=== PATIENT | male | born 1960 | race Caucasian/White ===

== ENCOUNTER → 2021-11-06 | Outpatient (CLI) | payer OTHER ==
[~2021-11-06] MED LIST: ALBU90OI INH; DOXY100 PO; METPRE4DP PO
== END | disposition home or self-care (01) ==
LOC: LAB 11:57 → LAB SHORT 11:57
DX: S91.301A Unspecified open wound, right foot, initial encounter (principal)
CPT/HCPCS: 87070; 87075; 87205

== ENCOUNTER 2022-01-09 01:00 | Day surgery (SDC) | payer OTHER | END 2022-01-09 23:49 | disposition home or self-care (01) | LOC: WOUND 01:00 | DX: S91.301D Unspecified open wound, right foot, subsequent encounter (principal); X58.XXXD Exposure to other specified factors, subsequent encounter; L08.89 Other specified local infections of the skin and subcutaneous tissue; R60.0 Localized edema; Z87.891 Personal history of nicotine dependence | CPT/HCPCS: A9270; G0463 ==

== ENCOUNTER 2022-01-23 04:15 | Day surgery (SDC) | payer OTHER | END 2022-01-23 23:20 | disposition home or self-care (01) | LOC: WOUND 04:15 | DX: S91.104D Unspecified open wound of right lesser toe(s) without damage to nail, subsequent encounter (principal); R60.0 Localized edema ==

== ENCOUNTER 2022-02-06 01:51 | Day surgery (SDC) | payer OTHER | END 2022-02-06 23:27 | disposition home or self-care (01) | LOC: WOUND 01:51 | DX: S91.301D Unspecified open wound, right foot, subsequent encounter (principal); X58.XXXD Exposure to other specified factors, subsequent encounter; R60.0 Localized edema | CPT/HCPCS: A9270; G0463 ==

== ENCOUNTER → 2024-01-13 | Outpatient (CLI) | payer OTHER | LOC: LAB SHORT 11:12 → LAB 11:12 | DX: L03.116 Cellulitis of left lower limb (principal) | CPT/HCPCS: 87070; 87205 ==

== ENCOUNTER 2024-12-03 11:07 | Inpatient (IN) | payer OTHER ==
[~2024-12-03] VITALS: Wt 114.2 kg
--- NOTE | 2024-12-03 12:16 | NUR ---
ARRIVAL PT ARRIVED TO UNIT AMBULATING ON HIS OWN. BROUGHT HIS BIKE WITH HIM. REPORTS PAIN BUT TOLERABLE AT THIS TIME. STATES IT HAS BEEN ONGOING FOR A WEEK. DR. MORATAYA NOTIFIED OF PATIENTS ARRIVAL. PT CURRENTLY CHANGING INTO A GOWN. CALL LIGHT PROVIDED AND EDUCATED ON USE.
[2024-12-03 12:28] VITALS: BP 131/72
[2024-12-03] MEDS ORDERED: CeFAZolin Sodium 2,000 MG in NS 100 ML IV SCH (13:00)
[2024-12-03] MEDS ORDERED: Ondansetron HCl 2 MG / ML 2ML Vial IV PRN (14:15)
[2024-12-03] MEDS ORDERED: NS 1,000 ML IV SCH (14:15)
[2024-12-03 14:46] VITALS: BP 142/79
[2024-12-03 17:53] LABS: BASOPHILS ABSOLUTE AUTO 0.03 K/mm3 (0.00-0.23); BASOPHILS PERCENT AUTO 0 % (0-2); EOSINOPHILS ABSOLUTE AUTO 0.26 K/mm3 (0.00-0.68); EOSINOPHILS PERCENT AUTO 3 % (0-6); Hematocrit 38.0 % (37.0-53.0); Hemoglobin 12.7 g/dL (13.5-17.5); IMMATURE GRAN ABSOLUTE AUTO 0.06 K/mm3 (0.00-0.10); IMMATURE GRAN PERCENT AUTO 1 % (0-1); LYMPHOCYTES ABSOLUTE AUTO 1.01 K/mm3 (0.84-5.20); LYMPHOCYTES PERCENT AUTO 10 % (21-46); MONOCYTES ABSOLUTE AUTO 1.47 K/mm3 (0.16-1.47); MONOCYTES PERCENT AUTO 15 % (4-13); Mean Corpuscular HGB Conc 33.4 g/dL (31.5-36.5); Mean Corpuscular Volume 98 fL (80-100); NEUTROPHILS ABSOLUTE AUTO 6.91 K/mm3 (1.96-9.15); NEUTROPHILS PERCENT AUTO 71 % (41-73); NRBC ABSOLUTE 0.00 K/mm3 (0.00-0.02); NRBC Auto 0.0 /100 WBC (0.0-0.2); Platelet Count 372 K/mm3 (150-400); RDW Coefficient Variation 13.8 % (11.7-14.2); RDW Standard Deviation 49.5 fL (35.1-46.3)
--- NOTE | 2024-12-03 18:00 | NUR ---
DIRECT ADMIT AND SUMMARY PATIENT ADMITTED FOR CELLULITIS. BILATERAL LEGS WITH WOUNDS AND REDNESS. PICTURES DONE AND WOUNDS RE WRAPPED. EMILIA ANXIOUS ABOUT ADMISSION. DR MORATAYA AWARE. DISCUSSED WITH PATIENT PLAN. PATIENT RELUCTANT TO HAVE LABS DRAWN AND IV PLACED. REVIEWED WITH PATIENT HIS CURRENT SITUATION AND ATTEMPS TO TREAT WITH ORAL ANTIBIOTICS. PROVIDED EDUCATION TO PATIENT RELATED TO POSSIBLE OUTCOMES IF REFUSES IV AND LABS RELATED TO CURRENT CONDITION. PATIENT STATES HE DOES WANT TO GET BETTER. POWERGLIDE PLACED FOR LAB DRAWS AND ANTIBIOTICS. LABS OBTAINED AND SENT TO LAB. IV FLUIDS STARTED AND ANTIBIOTICS AFTER POWERGLIDE PLACED. PATIENT CONTINUES TO BE ANXIOUS AND PARANOID AT TIMES.
[2024-12-03 18:14] LABS: C-REACTIVE PROTEIN, EXT RANGE 1.16 mg/dL (0.000-0.300)
[2024-12-03 18:22] LABS: Alanine Aminotransfer (ALT/SGP 16.0 U/L (12-78); Albumin, Blood 2.6 g/dL (3.4-5.0); Albumin/Globulin Ratio 0.6 (0.8-1.8); Anion Gap 6.0 mmol/L (3-11); Aspartate Aminotrans (AST/SGOT 13.0 U/L (12-37); Bilirubin, Total 0.4 mg/dL (0.1-1.0); Blood Urea Nitrogen 11.0 mg/dL (8-24); CO2, Blood 28.0 mmol/L (21-32); Calcium, Blood 8.8 mg/dL (8.5-10.1); Chloride, Blood 106.0 mmol/L (98-108); Creatinine, Blood 0.79 mg/dL (0.60-1.20); Globulin, Blood 4.5 g/dL (2.2-4.0); Glucose, Blood 104.0 mg/dL (70-99); Potassium, Blood 3.7 mmol/L (3.5-5.5); Sodium, Blood 136.0 mmol/L (136-145); Total Protein, Blood 7.1 g/dL (6.4-8.2)
[2024-12-03 19:11] VITALS: BP 132/55
--- NOTE | 2024-12-03 20:59 | NUR ---
PHYSICIAN COMMUNICATION INFORMED BY PRIMARY NURSE PT STATES HE NORMALLY TAKES AN INHALER. INFORMED BROCK P & HE ORDERED A BD PROTOCAL FOR RT TO COME & ASSESS PT.
[2024-12-03] MEDS ORDERED: Albuterol 2.5 MG/3 ML VIAL INH PRN (21:50)
--- NOTE | 2024-12-03 23:08 | NUR ---
UPDATE RN REQUEST EVAL BY RT R/T PT'S NOTED WHEEZING. PT DENIES SOB OR CHEST PAIN. PER RT, PT SPOT CHECK SPO2 WHILE SLEEP WAS 56% ON RA. PROTOCOL INITIATED AND HOSPITALIST NOTIFIED. PT REFUSED CPAP AND WAS RELUCTANT TO NC. PT NOW ABOVE 95% ON 4L NC WHILE SLEEPING WITH RESP EVEN/UNLABORED. HAS CALL LIGHT IN REACH.
[2024-12-03 23:35] VITALS: BP 137/64
--- NOTE | 2024-12-04 03:13 | NUR ---
SHIFT SUMMARY PT A/OX4. SPO2 ABOVE 95% ON 4L NC, DENIES SOB. PRN BREATHING TX, WHEN PT ALLOWS, FOR WHEEZING. CONT BIOX IN PLACE. HR NSR AT 77 BPM PER TELE. PT CONT TO DENY SOB, CP OR N/T. DRESSING TO BLE CDI. PT REFUSING TO ELEVATE BLE R/T COMFORT. REDNESS, WHEEPING AND PITTING EDEMA NOTED. IS DIONY PO INTAKE, DENIES N/V, IVF INFUSING PER ORDER. REPORTS PAIN TO BLE AT TOLERABLE LEVEL. AMB IND TO BATHROOM WITH IV ASSISTANCE. PLAN TO CONT IV ABX AND IVF. PT CURRENTLY IN BED, EYES CLOSED WITH RESP EVEN/UNLABORED. HAS CALL LIGHT IN REACH. WILL GIVE REPORT TO ONCOMING RN.
[2024-12-04 03:16] VITALS: BP 111/54
--- NOTE | 2024-12-04 04:35 | NUR ---
UPDATE PT SAT'S DROPPED TO 60-70% ON 4L NC WHILE SLEEPING. HOB ELEVATED AND PT ABLE TO TAKE DEEP BREATHS, SPO2 RETURNED TO 95-98% ON 4L, THEN DROPPED AGAIN ONCE ASLEEP. RT IN TO EVALUATE. PT CONT TO REFUSE CPAP, AGREED TO MASK. SATS CURRENTLY HOLDING AT 98% WHILE SLEEPING, CONT BIOX AND TELE IN PLACE. DR. ESPINOZA NOTIFIED, NO NEW ORDERS. PT CURRENTLY RESTING WITH CALL LIGHT IN REACH.
[2024-12-04 05:01] LABS: BASOPHILS ABSOLUTE AUTO 0.03 K/mm3 (0.00-0.23); BASOPHILS PERCENT AUTO 0 % (0-2); EOSINOPHILS ABSOLUTE AUTO 0.17 K/mm3 (0.00-0.68); EOSINOPHILS PERCENT AUTO 2 % (0-6); Hematocrit 38.8 % (37.0-53.0); Hemoglobin 12.6 g/dL (13.5-17.5); IMMATURE GRAN ABSOLUTE AUTO 0.03 K/mm3 (0.00-0.10); IMMATURE GRAN PERCENT AUTO 0 % (0-1); LYMPHOCYTES ABSOLUTE AUTO 1.17 K/mm3 (0.84-5.20); LYMPHOCYTES PERCENT AUTO 14 % (21-46); MONOCYTES ABSOLUTE AUTO 1.33 K/mm3 (0.16-1.47); MONOCYTES PERCENT AUTO 16 % (4-13); Mean Corpuscular HGB Conc 32.5 g/dL (31.5-36.5); Mean Corpuscular Volume 100 fL (80-100); NEUTROPHILS ABSOLUTE AUTO 5.79 K/mm3 (1.96-9.15); NEUTROPHILS PERCENT AUTO 68 % (41-73); NRBC ABSOLUTE 0.00 K/mm3 (0.00-0.02); NRBC Auto 0.0 /100 WBC (0.0-0.2); Platelet Count 336 K/mm3 (150-400); RDW Coefficient Variation 13.9 % (11.7-14.2); RDW Standard Deviation 51.4 fL (35.1-46.3)
[2024-12-04 05:54] LABS: Anion Gap 5.0 mmol/L (3-11); Blood Urea Nitrogen 12.0 mg/dL (8-24); CO2, Blood 29.0 mmol/L (21-32); Calcium, Blood 7.9 mg/dL (8.5-10.1); Chloride, Blood 108.0 mmol/L (98-108); Creatinine, Blood 0.76 mg/dL (0.60-1.20); Glucose, Blood 91.0 mg/dL (70-99); Potassium, Blood 3.9 mmol/L (3.5-5.5); Sodium, Blood 138.0 mmol/L (136-145)
[2024-12-04 07:16] VITALS: BP 114/53
[2024-12-04] MEDS ORDERED: Enoxaparin 40 MG/0.4 ML SYR SC SCH (09:00)
[2024-12-04 14:38] VITALS: BP 122/60
[2024-12-04 19:18] VITALS: BP 113/62
[2024-12-04 23:13] VITALS: BP 115/69
[2024-12-05 02:32] VITALS: BP 118/64
--- NOTE | 2024-12-05 05:13 | NUR ---
NOC SUMMARY- PT CONTINUES TO HAVE CONTINUED SOB WITH EXERTION. PT LEGS ARE WEEPING . DRESSINGS CHANGED. PT USES A OXYMASK WHILE SLEEPING TO MAINTAIN O2 >90% @ 4 LPM. NO OTHER ISSUES. PT VOIDING AND TOLERATING PO. CALL LIGHT IN REACH.
[2024-12-05 06:08] LABS: BASOPHILS ABSOLUTE AUTO 0.03 K/mm3 (0.00-0.23); BASOPHILS PERCENT AUTO 0 % (0-2); EOSINOPHILS ABSOLUTE AUTO 0.26 K/mm3 (0.00-0.68); EOSINOPHILS PERCENT AUTO 3 % (0-6); Hematocrit 38.9 % (37.0-53.0); Hemoglobin 12.7 g/dL (13.5-17.5); IMMATURE GRAN ABSOLUTE AUTO 0.04 K/mm3 (0.00-0.10); IMMATURE GRAN PERCENT AUTO 1 % (0-1); LYMPHOCYTES ABSOLUTE AUTO 1.20 K/mm3 (0.84-5.20); LYMPHOCYTES PERCENT AUTO 16 % (21-46); MONOCYTES ABSOLUTE AUTO 1.05 K/mm3 (0.16-1.47); MONOCYTES PERCENT AUTO 14 % (4-13); Mean Corpuscular HGB Conc 32.6 g/dL (31.5-36.5); Mean Corpuscular Volume 100 fL (80-100); NEUTROPHILS ABSOLUTE AUTO 5.09 K/mm3 (1.96-9.15); NEUTROPHILS PERCENT AUTO 66 % (41-73); NRBC ABSOLUTE 0.00 K/mm3 (0.00-0.02); NRBC Auto 0.0 /100 WBC (0.0-0.2); Platelet Count 343 K/mm3 (150-400); RDW Coefficient Variation 13.8 % (11.7-14.2); RDW Standard Deviation 51.0 fL (35.1-46.3)
[2024-12-05 07:11] VITALS: BP 129/68
[2024-12-05 11:54] VITALS: BP 129/80
[2024-12-05 15:09] VITALS: BP 135/70
--- NOTE | 2024-12-05 17:04 | NUR ---
SUMMARY NO ACUTE CHANGES T/O SHIFT. PT REC'D LASIX PER ORDERS THIS AM. HAS BEEN STANDING AT BEDSIDE TO VOID IN URINAL INDEPENDENTLY. AMBULATED TO RESTROOM INDEPENDENTLY AND HAD BM. USES CALL LIGHT APPROPRIATELY.
[2024-12-05 20:09] VITALS: BP 125/61
[2024-12-05 23:03] LABS: Alanine Aminotransfer (ALT/SGP 12.0 U/L (12-78); Albumin, Blood 2.4 g/dL (3.4-5.0); Albumin/Globulin Ratio 0.5 (0.8-1.8); Anion Gap 5.0 mmol/L (3-11); Aspartate Aminotrans (AST/SGOT 14.0 U/L (12-37); Bilirubin, Total 0.3 mg/dL (0.1-1.0); Blood Urea Nitrogen 10.0 mg/dL (8-24); CO2, Blood 29.0 mmol/L (21-32); Calcium, Blood 8.4 mg/dL (8.5-10.1); Chloride, Blood 106.0 mmol/L (98-108); Creatinine, Blood 0.78 mg/dL (0.60-1.20); Globulin, Blood 4.6 g/dL (2.2-4.0); Glucose, Blood 86.0 mg/dL (70-99); Potassium, Blood 4.4 mmol/L (3.5-5.5); Sodium, Blood 136.0 mmol/L (136-145); Total Protein, Blood 7.0 g/dL (6.4-8.2)
[2024-12-05 23:39] VITALS: BP 141/68
--- NOTE | 2024-12-06 04:42 | NUR ---
SHIFT SUMMARY AOX3, SLOW TO RESPOND. UNABLE TO FULLY COMPREHEND SEVERITY OF LOW SPO2 WHILE ASLEEP. CAN FOLLOW SIMPLE DIRECTIONS & ANSWER YES/NO QUESTIONS APPROP. APPROX 0100 PT STARTED DESATING TO 62% ON 3L, INCREASED O2 TO 5L & PT HAS BEEN MAINTAINING SATS SINCE, UNLESS PT REMOVES OXIMASK THEN HE DESATS TO 58-70% WHILE ASLEEP. ENCOURAGED PT TO KEEP O2 IN PLACE & TRIED TO EDUCATE THE IMPORTANCE, PT STILL REFUSED TO WEAR CPAP. REST OF VSS. TELE NSR W/BBB HR 71. +2 EDEMA TO L FOOT. CELLULITIS TO BLE, REDNESS DECREASED, DRESSINGS IN PLACE, C/D/I. DENIES N/T. IND W/TRANSFER. STABLE ON FEET. DENIES PAIN. CALL LIGHT IN REACH.
[2024-12-06 05:20] VITALS: BP 133/60
[2024-12-06 05:54] LABS: BASOPHILS ABSOLUTE AUTO 0.04 K/mm3 (0.00-0.23); BASOPHILS PERCENT AUTO 1 % (0-2); EOSINOPHILS ABSOLUTE AUTO 0.35 K/mm3 (0.00-0.68); EOSINOPHILS PERCENT AUTO 4 % (0-6); Hematocrit 40.4 % (37.0-53.0); Hemoglobin 13.2 g/dL (13.5-17.5); IMMATURE GRAN ABSOLUTE AUTO 0.05 K/mm3 (0.00-0.10); IMMATURE GRAN PERCENT AUTO 1 % (0-1); LYMPHOCYTES ABSOLUTE AUTO 1.09 K/mm3 (0.84-5.20); LYMPHOCYTES PERCENT AUTO 13 % (21-46); MONOCYTES ABSOLUTE AUTO 1.21 K/mm3 (0.16-1.47); MONOCYTES PERCENT AUTO 15 % (4-13); Mean Corpuscular HGB Conc 32.7 g/dL (31.5-36.5); Mean Corpuscular Volume 98 fL (80-100); NEUTROPHILS ABSOLUTE AUTO 5.55 K/mm3 (1.96-9.15); NEUTROPHILS PERCENT AUTO 67 % (41-73); NRBC ABSOLUTE 0.00 K/mm3 (0.00-0.02); NRBC Auto 0.0 /100 WBC (0.0-0.2); Platelet Count 368 K/mm3 (150-400); RDW Coefficient Variation 13.4 % (11.7-14.2); RDW Standard Deviation 48.3 fL (35.1-46.3)
[2024-12-06 06:25] LABS: Alanine Aminotransfer (ALT/SGP 10.0 U/L (12-78); Albumin, Blood 2.4 g/dL (3.4-5.0); Albumin/Globulin Ratio 0.5 (0.8-1.8); Anion Gap 6.0 mmol/L (3-11); Aspartate Aminotrans (AST/SGOT 15.0 U/L (12-37); Bilirubin, Total 0.3 mg/dL (0.1-1.0); Blood Urea Nitrogen 11.0 mg/dL (8-24); CO2, Blood 29.0 mmol/L (21-32); Calcium, Blood 8.0 mg/dL (8.5-10.1); Chloride, Blood 106.0 mmol/L (98-108); Creatinine, Blood 0.77 mg/dL (0.60-1.20); Globulin, Blood 5.1 g/dL (2.2-4.0); Glucose, Blood 87.0 mg/dL (70-99); Potassium, Blood 3.9 mmol/L (3.5-5.5); Sodium, Blood 137.0 mmol/L (136-145); Total Protein, Blood 7.5 g/dL (6.4-8.2)
[2024-12-06 07:12] VITALS: BP 142/72
--- NOTE | 2024-12-06 10:20 | NUR ---
DRESSING DRESSING TO BLE'S REMOVED WITH DR SANDHU. LEG CELLULITIS WOUNDS CLEANSED WITH WOUND SPRAY, SCRUBBED WITH 4X4. DRIED. XEROFORM PLACED OVER WOUNDS, ABD PADS PLACED OVER TOP, THEN WRAPPED WITH KERLEX. PT OFFERED SHOWER BEFORE CLEANSING/REDRESSING, PT DENIED, STATES "MAYBE TOMORROW".
[2024-12-06 15:31] VITALS: BP 116/67
--- NOTE | 2024-12-06 17:04 | NUR ---
SUMMARY NO ACUTE CHANGES THIS SHIFT. VSS. AXO3-4 , POOR COMPREHENSION REGARDING MEDICINE MOTED. DIURESING WELL. DRESSINGS CHANGED TO BILAT LEGS THIS AM. PLAN FOR DC TOMORROW PER DR SANDHU. PT RESTING OFF AND ON TODAY. AMBULATES WELL W/O ASSIST. WATCHING TV OR NAPPING FOR MAJORITY OF SHIFT.
[2024-12-06 20:10] VITALS: BP 125/63
[2024-12-06 23:58] VITALS: BP 142/62
[2024-12-07 05:03] VITALS: BP 120/65
[2024-12-07 06:41] LABS: BASOPHILS ABSOLUTE AUTO 0.05 K/mm3 (0.00-0.23); BASOPHILS PERCENT AUTO 1 % (0-2); EOSINOPHILS ABSOLUTE AUTO 0.27 K/mm3 (0.00-0.68); EOSINOPHILS PERCENT AUTO 4 % (0-6); Hematocrit 41.6 % (37.0-53.0); Hemoglobin 13.6 g/dL (13.5-17.5); IMMATURE GRAN ABSOLUTE AUTO 0.05 K/mm3 (0.00-0.10); IMMATURE GRAN PERCENT AUTO 1 % (0-1); LYMPHOCYTES ABSOLUTE AUTO 1.19 K/mm3 (0.84-5.20); LYMPHOCYTES PERCENT AUTO 15 % (21-46); MONOCYTES ABSOLUTE AUTO 1.06 K/mm3 (0.16-1.47); MONOCYTES PERCENT AUTO 14 % (4-13); Mean Corpuscular HGB Conc 32.7 g/dL (31.5-36.5); Mean Corpuscular Volume 101 fL (80-100); NEUTROPHILS ABSOLUTE AUTO 5.13 K/mm3 (1.96-9.15); NEUTROPHILS PERCENT AUTO 66 % (41-73); NRBC ABSOLUTE 0.00 K/mm3 (0.00-0.02); NRBC Auto 0.0 /100 WBC (0.0-0.2); Platelet Count 362 K/mm3 (150-400); RDW Coefficient Variation 13.4 % (11.7-14.2); RDW Standard Deviation 49.8 fL (35.1-46.3)
[2024-12-07 07:02] LABS: Alanine Aminotransfer (ALT/SGP 12.0 U/L (12-78); Albumin, Blood 2.5 g/dL (3.4-5.0); Albumin/Globulin Ratio 0.5 (0.8-1.8); Anion Gap 5.0 mmol/L (3-11); Aspartate Aminotrans (AST/SGOT 14.0 U/L (12-37); Bilirubin, Total 0.2 mg/dL (0.1-1.0); Blood Urea Nitrogen 14.0 mg/dL (8-24); CO2, Blood 30.0 mmol/L (21-32); Calcium, Blood 8.7 mg/dL (8.5-10.1); Chloride, Blood 105.0 mmol/L (98-108); Creatinine, Blood 0.75 mg/dL (0.60-1.20); Globulin, Blood 5.1 g/dL (2.2-4.0); Glucose, Blood 98.0 mg/dL (70-99); Potassium, Blood 4.1 mmol/L (3.5-5.5); Sodium, Blood 136.0 mmol/L (136-145); Total Protein, Blood 7.6 g/dL (6.4-8.2)
[2024-12-07 07:03] VITALS: BP 118/55
--- NOTE | 2024-12-07 07:33 | NUR ---
SUMMARY NO ACUTE CHANGES. CONT TO NEED O2 AND SLEEP APNEA NOTED.
--- NOTE | 2024-12-07 12:56 | NUR ---
TELE DC'D. MIDLINE IV DC'D INTACT. PT GETTING DRESSED FOR DISCHARGE.
[2024-12-07] MEDS ORDERED: CLIN150 PO (13:27)
--- NOTE | 2024-12-07 13:37 | NUR ---
DC INSTRUCT REVIEWED WITH PT. STATED UNDERSTANDING. DISCHARGED INTO SELF CARE.
--- NOTE | 2024-12-07 14:03 | NUR ---
NEW RX FOR CLINDAMYCIN CALLED TO [id number]
== END 2024-12-07 13:35 | disposition home or self-care (01) | DRG 603 ==
LOC: SURS 11:07
PROVIDERS: Student in an Organized Health Care Education/Training Program; ADMIT Family Medicine
DX: L03.115 Cellulitis of right lower limb (principal); I48.91 Unspecified atrial fibrillation; J44.89 Other specified chronic obstructive pulmonary disease; L03.116 Cellulitis of left lower limb; F41.9 Anxiety disorder, unspecified; I87.2 Venous insufficiency (chronic) (peripheral); G47.33 Obstructive sleep apnea (adult) (pediatric); Z53.20 Procedure and treatment not carried out because of patient's decision for unspecified reasons; Z90.49 Acquired absence of other specified parts of digestive tract
CPT/HCPCS: 36415; 73700; 80048; 80053; 83036; 83605; 85025; 85651; 86140; 94640; 94664; 94762; A9270; C1751; J0690; J1938; J2003; J7030

== ENCOUNTER 2024-12-25 09:07 | Emergency (ER) | payer OTHER ==
[~2024-12-25] VITALS: Ht 180.3 cm; Wt 108.9 kg
[~2024-12-25 09:07] MED LIST changes: +CLIN150 PO
[2024-12-25] MEDS ORDERED: FUROSEMIDE20 MG PO (09:27)
[2024-12-25] MEDS ORDERED: SULFAMETHOXAZO1 EAC1 PO (09:27)
[2024-12-25] MEDS ORDERED: KLOR-CON 1010 ME9 PO (09:27)
[2024-12-25 10:20] VITALS: BP 133/74
[2024-12-25] MEDS ORDERED: XARELTO15 MG PO (10:26)
== END 2024-12-25 10:39 | disposition home or self-care (01) ==
LOC: ER 09:07
DX: I82.402 Acute embolism and thrombosis of unspecified deep veins of left lower extremity (principal); J44.9 Chronic obstructive pulmonary disease, unspecified; I48.91 Unspecified atrial fibrillation; J45.909 Unspecified asthma, uncomplicated; F17.200 Nicotine dependence, unspecified, uncomplicated; Z79.899 Other long term (current) drug therapy
CPT/HCPCS: 99283-25; A9270

== ENCOUNTER 2025-02-15 14:12 | Observation (INO) | payer OTHER ==
[~2025-02-15] VITALS: Ht 180.3 cm; Wt 108.9 kg
[~2025-02-15 14:12] MED LIST changes: +FUROSEMIDE20 MG PO; +KLOR-CON 1010 ME9 PO; +SULFAMETHOXAZO1 EAC1 PO; +XARELTO15 MG PO
[2025-02-15] MEDS ORDERED: Clindamycin 600mg in D5W 50 ML IV ONE (14:30)
[2025-02-15 14:44] LABS: BASOPHILS ABSOLUTE AUTO 0.04 K/mm3 (0.00-0.23); BASOPHILS PERCENT AUTO 0 % (0-2); EOSINOPHILS ABSOLUTE AUTO 0.31 K/mm3 (0.00-0.68); EOSINOPHILS PERCENT AUTO 3 % (0-6); Hematocrit 38.9 % (37.0-53.0); Hemoglobin 13.0 g/dL (13.5-17.5); IMMATURE GRAN ABSOLUTE AUTO 0.04 K/mm3 (0.00-0.10); IMMATURE GRAN PERCENT AUTO 0 % (0-1); LYMPHOCYTES ABSOLUTE AUTO 1.22 K/mm3 (0.84-5.20); LYMPHOCYTES PERCENT AUTO 13 % (21-46); MONOCYTES ABSOLUTE AUTO 1.26 K/mm3 (0.16-1.47); MONOCYTES PERCENT AUTO 13 % (4-13); Mean Corpuscular HGB Conc 33.4 g/dL (31.5-36.5); Mean Corpuscular Volume 98 fL (80-100); NEUTROPHILS ABSOLUTE AUTO 6.71 K/mm3 (1.96-9.15); NEUTROPHILS PERCENT AUTO 70 % (41-73); NRBC ABSOLUTE 0.00 K/mm3 (0.00-0.02); NRBC Auto 0.0 /100 WBC (0.0-0.2); Platelet Count 333 K/mm3 (150-400); RDW Coefficient Variation 13.9 % (11.7-14.2); RDW Standard Deviation 50.9 fL (35.1-46.3)
[2025-02-15 15:01] LABS: C-REACTIVE PROTEIN, EXT RANGE 0.41 mg/dL (0.000-0.300)
[2025-02-15 15:06] LABS: Anion Gap 7.0 mmol/L (3-11); Blood Urea Nitrogen 9.0 mg/dL (8-24); CO2, Blood 26.0 mmol/L (21-32); Calcium, Blood 8.4 mg/dL (8.5-10.1); Chloride, Blood 109.0 mmol/L (98-108); Creatinine, Blood 0.77 mg/dL (0.60-1.20); Glucose, Blood 102.0 mg/dL (70-99); Potassium, Blood 3.7 mmol/L (3.5-5.5); Sodium, Blood 138.0 mmol/L (136-145)
[2025-02-15] MEDS ORDERED: FLU VACC TS2025-26(6MOS UP)/PF 45 MCG/0.5 ML SYRINGE IM ONE (21:25)
[2025-02-15] MEDS ORDERED: Ondansetron HCl 2 MG / ML 2ML Vial IV PRN (21:25)
[2025-02-15] MEDS ORDERED: Ipratropium/Albuterol SulF 2.5-0.5MG/3 ML Amp INH SCH (21:25)
[2025-02-15] MEDS ORDERED: Albuterol 2.5 MG/3 ML VIAL INH PRN (21:25)
[2025-02-15] MEDS ORDERED: OxyCODONE 5 mg/Acetamin 325 mg TABLET PO PRN (21:25)
[2025-02-15] MEDS ORDERED: XARELTO20 MG PO (22:21)
[2025-02-15 22:52] VITALS: BP 132/72
[2025-02-15] MEDS ORDERED: Clindamycin 900mg in D5W 50ML 50 ML IV SCH (23:00)
[2025-02-15] MEDS ORDERED: NS 1,000 ML IV SCH (23:30)
[2025-02-16 05:09] VITALS: BP 121/64
--- NOTE | 2025-02-16 05:31 | NUR ---
SHIFT SUMMARY; PT TO ROOM FROM ED AT APPROX 2240. PT A/OX4, ONE ASSIST TO BATHROOM. PT CURRENTLY INFUSING CLINDAMYCN FOR DX OF CELLULITIS. LUNG SOUNDS ASCULTATED WITH INSPIRATORY WHEEZE IN ALL LUNG KLEIN. BILATERAL LOWER EXTREMITY REDNESS, SWELLING, AND LEAKAGE NOTED. LEFT MESSAGE W/ DR. TEIXEIRA'S OFFICE FOR CONSULTATION FOR POSSIBLE DEBRIDEMENT. PT NPO AFTER MIDNIGHT FOR POSSIBLE PROCEDURE. PT ON TELE WITH NSR AT 69 BPM. 325 ML OF DARK YELLOW URINE VOIDED DURING SHIFT. VSS. CALL LIGHT IN REACH W/ BED IN LOW POSITION.
[2025-02-16 06:24] LABS: BASOPHILS ABSOLUTE AUTO 0.04 K/mm3 (0.00-0.23); BASOPHILS PERCENT AUTO 1 % (0-2); EOSINOPHILS ABSOLUTE AUTO 0.26 K/mm3 (0.00-0.68); EOSINOPHILS PERCENT AUTO 3 % (0-6); Hematocrit 40.6 % (37.0-53.0); Hemoglobin 13.2 g/dL (13.5-17.5); IMMATURE GRAN ABSOLUTE AUTO 0.02 K/mm3 (0.00-0.10); IMMATURE GRAN PERCENT AUTO 0 % (0-1); LYMPHOCYTES ABSOLUTE AUTO 1.18 K/mm3 (0.84-5.20); LYMPHOCYTES PERCENT AUTO 15 % (21-46); MONOCYTES ABSOLUTE AUTO 1.29 K/mm3 (0.16-1.47); MONOCYTES PERCENT AUTO 16 % (4-13); Mean Corpuscular HGB Conc 32.5 g/dL (31.5-36.5); Mean Corpuscular Volume 102 fL (80-100); NEUTROPHILS ABSOLUTE AUTO 5.13 K/mm3 (1.96-9.15); NEUTROPHILS PERCENT AUTO 65 % (41-73); NRBC ABSOLUTE 0.00 K/mm3 (0.00-0.02); NRBC Auto 0.0 /100 WBC (0.0-0.2); Platelet Count 318 K/mm3 (150-400); RDW Coefficient Variation 14.2 % (11.7-14.2); RDW Standard Deviation 53.4 fL (35.1-46.3)
[2025-02-16 06:44] LABS: Anion Gap 5.0 mmol/L (3-11); Blood Urea Nitrogen 10.0 mg/dL (8-24); CO2, Blood 27.0 mmol/L (21-32); Calcium, Blood 8.3 mg/dL (8.5-10.1); Chloride, Blood 109.0 mmol/L (98-108); Creatinine, Blood 0.75 mg/dL (0.60-1.20); Glucose, Blood 98.0 mg/dL (70-99); Potassium, Blood 4.2 mmol/L (3.5-5.5); Sodium, Blood 137.0 mmol/L (136-145)
[2025-02-16 07:25] VITALS: BP 112/65
[2025-02-16] MEDS ORDERED: Lactobacil 2-S.Thermo-Bifido 1 1 Cap PO SCH (09:00)
[2025-02-16] MEDS ORDERED: Enoxaparin 40 MG/0.4 ML SYR SC SCH (09:00)
[2025-02-16] MEDS ORDERED: CeFAZolin Sodium 1,000 MG in NS 50 ML IV SCH (13:00)
[2025-02-16 15:32] VITALS: BP 121/60
[2025-02-16] MEDS ORDERED: NS 250 ML IV PRN (15:50)
--- NOTE | 2025-02-16 18:15 | NUR ---
SHIFT SUMMARY PATIENT A&OX4, EXPRESSES ANNOYANCE AT NURSING STAFF WITH EYE ROLLS AND VERBAL STATEMENTS. DR. PHILIP CONSULTED PT, PATIENT IS TO HAVE WOUND CARE, CONSISTENT CLEANING OF WOUNDS AND PERSONAL HYGIENE WITH SHOWERS, PATIENT TO CONTINUE ANTIBIOTICS. CURRENTLY IN BED EATING DINNER. BED IS IN THE LOWEST POSITION, CALL LIGHT IS WITHIN REACH.
[2025-02-16] MEDS ORDERED: ALBU90OI INH (18:27)
[2025-02-16 19:36] VITALS: BP 126/59
[2025-02-17 00:07] VITALS: BP 131/46
--- NOTE | 2025-02-17 04:31 | NUR ---
SHIFT SUMMARY PATIENT IS ALERT AND ORIENTED. PATIENT HAS HAD NO ACUTE EVENTS THIS SHIFT. VITAL SIGNS REVIEWED. PATIENT HAD ORTHO CONSULT AND WOUND CARE DONE ON DAY SHIFT AND TO BE DONE EVERY DAY. PATIENT HAS HAD ABX INFUSED ORDERED. PATIENT IS STANDBY ASSIST. PATIENT HAS NO COMPLAINTS OF PAIN, NAUSEA, VOMITTING OR SOB THIS SHIFT. BED IN LOCKED AND LOWEST POSITION. CALL LIGHT IN PLACE.
[2025-02-17 05:30] VITALS: BP 119/68
[2025-02-17 07:24] VITALS: BP 121/64
[2025-02-17 15:44] VITALS: BP 124/68
--- NOTE | 2025-02-17 16:25 | NUR ---
SHIFT SUMMARY PT AOX4, COOPERATIVE, ABLE TO MAKE NEEDS KNOWN. PT IN CONT, HAS BEEN USING URINAL WHEN NEEDING TO VOID. IV DID DC THIS AM, PT TOLERATED NEW IV POORLY. TOLERATING MEDICATION. PT REPORTS "I CANT WAIT TO GET OUT OF HERE". THIS RN EXPLAINED THAT PT WAS NOT BEING HELD CAPTIVE AND CAN LEAVE IF PT WANTS TO. BED IN LOWEST POSITION, CALL LIGHT WITHIN REACH.
[2025-02-17 20:35] VITALS: BP 139/63
[2025-02-17 23:31] VITALS: BP 135/66
[2025-02-18 04:37] VITALS: BP 149/69
--- NOTE | 2025-02-18 05:04 | NUR ---
SHIFT SUMMARY; PATIENT SLEPT IN LONG INTERVALS, OX SAT TO MID 80'S WHEN SLEEPING, O2/2L/NC CORRECTED IT. TELE SB 58 WITH 1' HB AND BBB.IV INFILTRATED WITH MIDNIGHT ABX, PATIENT DECLINED LETTING US START IT TILL MORNING.
[2025-02-18] MEDS ORDERED: Magnesium Hydroxide Conc 10 ML UDC PO PRN (06:45)
[2025-02-18 07:35] VITALS: BP 137/59
[2025-02-18 11:51] VITALS: BP 133/76
[2025-02-18 15:38] VITALS: BP 124/68
--- NOTE | 2025-02-18 16:06 | NUR ---
SHIFT SUMMARY PATIENT IN THE MORNING IS A LITTLE BIT IRRITABLE, HOWEVER, DOES COOPERATE WITH CARE--EVENING PATIENT BECOMES MORE PLEASANT. PATIENT IS A&OX4, STILL MEDICATING PER EMAR FOR BM (HAS NOT HAD ONE SINCE 3, WORKING ON 5), WOUND CARE DRESSING CHANGED AND CLEANED. NO NOTES OF DISTRESS, PATIENT ABLE TO CALL APPROPRIATELY, CALL LIGHT WITHIN REACH.
--- NOTE | 2025-02-18 18:21 | NUR ---
THIS MICA PASTER HAS REVIEWED AND AGREES WITH ALL NOTES AND ASSESSMENTS BY JADON CAMPOS.
[2025-02-18 19:59] VITALS: BP 127/62
[2025-02-18 23:59] VITALS: BP 126/73
[2025-02-19 03:46] VITALS: BP 117/67
--- NOTE | 2025-02-19 04:44 | NUR ---
SHIFT SUMMARY; PATIENT SLEPT IN LONG INTERVALS, DECLINED PAIN MED. NO BM YET. TELE SR/B 56 WITH 1ST HB. NO CALLS FROM TELE TONIGHT. DID NOT HAVE O2 ON DURING THE NIGHT, NO LONG ALARMS FROM OXIMETRY.
[2025-02-19 07:17] VITALS: BP 111/69
[2025-02-19 11:28] VITALS: BP 117/94
[2025-02-19] MEDS ORDERED: FURO40 PO (12:10)
[2025-02-19] MEDS ORDERED: VISBIOME 112.51 EACH PO (12:10)
[2025-02-19] MEDS ORDERED: CEPH500 PO (12:10)
--- NOTE | 2025-02-19 12:25 | NUR ---
DISCHARGE NOTE: WENT OVER DISCHARGE WITH THE PATIENT. TELE AND IV REMOVED. PATIENT GOT HIMSELF DRESSED AND COLLECTED BELONGINGS. HE REFUSED TO BE WHEELED DOWN. PT WALKED OFF OF UNIT. NO SIGNS OR SYMPTOMS OF DISTRESS DURING DISCHARGE.
== END 2025-02-19 12:32 | disposition home or self-care (01) ==
LOC: ER 14:12 → MEDS 14:13 → ER 21:20 → MEDS 22:31 → ENPENDDIS 02-19 11:45 → MEDS 02-19 12:32
PROVIDERS: Emergency Medicine; Nurse Practitioner Acute Care; ADMIT Internal Medicine
DX: L03.115 Cellulitis of right lower limb (principal); L03.116 Cellulitis of left lower limb; I87.8 Other specified disorders of veins; I48.0 Paroxysmal atrial fibrillation; J44.9 Chronic obstructive pulmonary disease, unspecified; D64.9 Anemia, unspecified; E66.01 Morbid (severe) obesity due to excess calories; Z68.33 Body mass index [BMI] 33.0-33.9, adult; Z87.891 Personal history of nicotine dependence; Z79.01 Long term (current) use of anticoagulants
CPT/HCPCS: 36415; 73590; 80048; 85025; 85651; 86140; 94760; 94762; 96374; 96375; 96376; 97110; 97112; 97161; 99284-25; A9270; G0378; J0690; J1938; J7030; J7050

== ENCOUNTER 2025-03-17 00:28 | Day surgery (SDC) | payer OTHER ==
[~2025-03-17 00:28] MED LIST changes: +CEPH500 PO; +FURO40 PO; +VISBIOME 112.51 EACH PO; +XARELTO20 MG PO
== END 2025-03-17 23:00 | disposition home or self-care (01) ==
LOC: WOUND 00:28
DX: I87.311 Chronic venous hypertension (idiopathic) with ulcer of right lower extremity (principal); L97.819 Non-pressure chronic ulcer of other part of right lower leg with unspecified severity; I87.2 Venous insufficiency (chronic) (peripheral); J44.9 Chronic obstructive pulmonary disease, unspecified; G47.33 Obstructive sleep apnea (adult) (pediatric); Z86.718 Personal history of other venous thrombosis and embolism; Z87.891 Personal history of nicotine dependence; Z87.828 Personal history of other (healed) physical injury and trauma
CPT/HCPCS: G0463

== ENCOUNTER 2025-04-14 16:19 | Emergency (ER) | payer OTHER | END 2025-04-15 00:04 | disposition home or self-care (01) | LOC: ER 16:19 | DX: R60.0 Localized edema (principal); S91.301A Unspecified open wound, right foot, initial encounter; L03.115 Cellulitis of right lower limb; F17.200 Nicotine dependence, unspecified, uncomplicated; Z79.01 Long term (current) use of anticoagulants; Z79.899 Other long term (current) drug therapy; Z59.89 Other problems related to housing and economic circumstances; X58.XXXA Exposure to other specified factors, initial encounter ==